=== PATIENT | male | born 1990 | race Caucasian/White ===

== ENCOUNTER 2016-10-31 18:08 | Emergency (ER) | payer OTHER ==
[~2016-10-31] VITALS: Ht 170.2 cm; Wt 97.2 kg
[2016-10-31 18:11] VITALS: TEMP 36.7; Ht 170.2 cm; Wt 97.2 kg
--- NOTE | 2016-10-31 18:57 | DIAGNOSTIC IMAGING REPORT ---
LEFT ELBOW 3 VIEWS CLINICAL HISTORY: Left elbow injury. Pain and swelling. FINDINGS: 3 views of left elbow are obtained. No prior studies are available for comparison at the time of dictation. The skeletal structures are well mineralized. No fracture is seen. The joint spaces are well-maintained. No joint effusion is identified. Soft tissue edema is present around the elbow. IMPRESSION: Soft tissue swelling with no radiographic evidence of left elbow fracture. Electronically signed by: Tian Farrell M.D. 10/31/2016 6:55 PM Dictated Date/Time: 10/31/2016 6:54 PM
--- NOTE | 2016-10-31 20:07 | DIAGNOSTIC IMAGING REPORT ---
ULTRASOUND LEFT UPPER EXTREMITY VENOUS CLINICAL HISTORY: Left arm swelling. COMPARISON STUDY: No priors. TECHNIQUE: Real-time, grayscale, and color Doppler sonography of the deep veins of the left upper extremity is performed. Compression and augmentation were utilized. FINDINGS: There is no sonographic evidence of deep venous thrombosis identified in the left upper extremity. The left internal jugular, axillary, and brachial veins are patent and normally compressible. Normal venous waveforms and augmentation are seen within the left subclavian vein. The cephalic and basilic veins are clear. The visualized radial and ulnar veins are patent. IMPRESSION: There is no sonographic evidence of deep venous thrombosis identified in the left upper extremity. Electronically signed by: Tian Farrell M.D. 10/31/2016 8:06 PM Dictated Date/Time: 10/31/2016 8:05 PM
[2016-10-31 20:11] VITALS: BP 135/72; PULSE 58; O2SAT 99
[2016-10-31] MEDS ORDERED: CEPH500C PO (20:15)
[2016-10-31] MEDS ORDERED: CEPHALEXIN MONOHYDRATE 250 MG CAP PO ONE (20:15)
--- NOTE | 2016-10-31 20:19 | EMERGENCY ROOM VISIT NOTE ---
History Report prepared by Rosa: Hunter Phipps Under the Supervision of: Dr. Chencho Hoyt D.O. First contact with patient: 18:14 Chief Complaint: ELBOW PAIN/INJURY Stated Complaint: LF ELBOW INJURY, PAIN W/SWELLING,WC History of Present Illness The patient is a 25 year old male who presents to the Emergency Room with complaints of constant left elbow pain for the past week. He currently rates his discomfort as a 3/10 in severity. The patient states that he is currently in the [employer], and he was in training with 80 pounds of gear, and he fell onto his left elbow. The patient states that when he fell he felt and heard a pop. The patient states that he has bruising from his elbow to his hand that started the second day after, he has limited range of motion, and he has swelling that seems to have slightly improved. He additionally states that he had a fever a few days afterwards, and he was nauseous and dizzy after the event. He states that he was seen in an infirmary, and he got an x-ray in the field which was negative. Source of History: patient Onset: a week ago Position: elbow (left) Symptom Intensity: 3/10 Timing: constant Associated Symptoms: + fevers, + nausea Note: Associated symptoms: swelling and bruising Review of Systems See HPI for pertinent positives & negatives. A total of 10 systems reviewed and were otherwise negative. Family History Patient reports no known family medical history. Social History Smoking Status: Never Smoker Marital Status: single Occupation Status: employed Current/Historical Medications Scheduled Cephalexin Monohydrate (Keflex), 500 MG PO QID Allergies Coded Allergies: No Known Allergies (Unverified , 10/31/16) Physical Exam Vital Signs Date Time Temp Pulse Resp B/P (MAP) Pulse Ox O2 Delivery O2 Flow Rate FiO2 10/31/16 20:11 58 18 135/72 99 Room Air 10/31/16 18:11 36.7 85 20 141/102 98 Room Air Physical Exam CONSTITUTIONAL/VITAL SIGNS: Reviewed / noted above. GENERAL: Non-toxic in appearance. INTEGUMENTARY: Warm, dry, and [place]. HEAD: Normocephalic. EYES: without scleral icterus or trauma. ENT/OROPHARYNX: clear and moist. LYMPHADENOPATHY/NECK: Is supple without lymphadenopathy or meningismus. RESPIRATORY: Lungs clear and equal. CARDIOVASCULAR: Regular rate and rhythm. GI/ABDOMEN: Soft and nontender. No organomegaly or pulsatile mass. No rebound or guarding. Normal bowel sounds. EXTREMITIES: Left arm is swollen and warm from the distal humerus to the hand. Increased warmth noted over the left elbow with some ecchymosis in the antecubital space. Distal pulses intact. BACK: No CVA tenderness. NEUROLOGICAL: Intact without focal deficits. PSYCHIATRIC: normal affect. MUSCULOSKELETAL: Normally developed with good muscle tone. Medical Decision & Procedures ER Provider Diagnostic Interpretation: Radiology results as stated below per my review and radiologist interpretation: ULTRASOUND LEFT UPPER EXTREMITY VENOUS CLINICAL HISTORY: Left arm swelling. COMPARISON STUDY: No priors. TECHNIQUE: Real-time, grayscale, and color Doppler sonography of the deep veins of the left upper extremity is performed. Compression and augmentation were utilized. FINDINGS: There is no sonographic evidence of deep venous thrombosis identified in the left upper extremity. The left internal jugular, axillary, and brachial veins are patent and normally compressible. Normal venous waveforms and augmentation are seen within the left subclavian vein. The cephalic and basilic veins are clear. The visualized radial and ulnar veins are patent. IMPRESSION: There is no sonographic evidence of deep venous thrombosis identified in the left upper extremity. Electronically signed by: Tian Farrell M.D. 10/31/2016 8:06 PM Dictated Date/Time: 10/31/2016 8:05 PM LEFT ELBOW 3 VIEWS CLINICAL HISTORY: Left elbow injury. Pain and swelling. FINDINGS: 3 views of left elbow are obtained. No prior studies are available for comparison at the time of dictation. The skeletal structures are well mineralized. No fracture is seen. The joint spaces are well-maintained. No joint effusion is identified. Soft tissue edema is present around the elbow. IMPRESSION: Soft tissue swelling with no radiographic evidence of left elbow fracture. Electronically signed by: Tian Farrell M.D. 10/31/2016 6:55 PM Dictated Date/Time: 10/31/2016 6:54 PM ED Course 1813: Previous medical records were reviewed. The patient was evaluated in room C10. A complete history and physical examination was performed. 2015: Keflex Cap 500mg PO 2020: On reevaluation, the patient is feeling well. I discussed the results and findings with the patient. He verbalized agreement of the treatment plan. He was discharged home. Medical Decision Differential diagnoses include: Fracture, DVT, infection, and contusion. Medication Reconciliation: I attest that I have personally reviewed the patient' s current medication list. Patient was found to have a slightly elevated blood pressure due to circumstances. I do not believe that the patient requires hypertension monitoring. This is a 25-year-old male who presents to the ED with a chief complaint of left forearm swelling and left elbow discomfort. The patient states that about a week ago he was at [employer] training when he fell onto his left elbow. He had some field x-rays and was evaluated by a physician technical staff assistant at that time. There was no obvious fractures. The patient states that at the time of his exam, he did have a fever of 102. This may be from hyperthermia as he states that it was very hot out when they were doing their field exercises. The patient states that he has had some persistence in swelling and discomfort in the arm since that time. His vital signs are stable. He is afebrile. Exam reveals increased warmth in the area of the left elbow, there is some ecchymosis in the anterior portion of the left elbow and there is swelling to the entire forearm and elbow region and hand. Distal pulses are intact. X-ray of the elbow did not show an obvious fracture. Ultrasound of the left arm did not reveal DVT. The patient was told results. He will be discharged on Keflex for possible bursitis. Orthopedic referral was provided. I did recommend elevation the arm to assist with edema. Impression Primary Impression: Left arm swelling Additional Impression: Contusion of elbow, left Scribe Attestation The scribe's documentation has been prepared under my direction and personally reviewed by me in its entirety. I confirm that the note above accurately reflects all work, treatment, procedures, and medical decision making performed by me. Departure Information Dispostion Home / Self-Care Prescriptions Cephalexin Monohydrate (Keflex) 500 Mg Cap 500 MG PO QID, #40 CAP Prov: Chencho Hoyt D.O. 10/31/16 Referrals No Doctor, Assigned (PCP) Gomez Guevara D.O. Forms HOME CARE DOCUMENTATION FORM, IMPORTANT VISIT INFORMATION Patient Instructions My [facility] Additional Instructions X-ray of the elbow did not show a fracture. Ultrasound did not show a blood clot. Keflex as prescribed for possible bursitis. Tylenol / Motrin for discomfort. Elevate the arm as much as possible to help with swelling. Follow-up with Dr. Guevara (orthopedics) for recheck on Wednesday or Wednesday. Problem Qualifiers
== END 2016-10-31 20:38 | disposition home or self-care (01) ==
LOC: C.EDB 18:09 → C.EDC 20:38
DX: M79.89 Other specified soft tissue disorders (principal); S50.02XA Contusion of left elbow, initial encounter; W18.39XA Other fall on same level, initial encounter; W22.8XXA Striking against or struck by other objects, initial encounter; Y93.89 Activity, other specified; Y99.8 Other external cause status